=== PATIENT | female | born 1990 | race African-American/Black ===

== ENCOUNTER 2017-10-22 15:22 | Outpatient (CLI) | payer OTHER ==
--- NOTE | 2017-10-23 08:18 | Magnetic Resonance Report ---
MRI BRAIN WITHOUT AND WITH CONTRAST: 10/22/17 15:34:00 CLINICAL: Benign intracranial hypertension. TECHNIQUE: Axial diffusion, T1, FLAIR, gradient echo T2*, and coronal and axial T2 and sagittal T1 plus coronal and axial postcontrast T1 sequences on a 1.5 Jany magnet. 12.0 cc of Multihance was injected intravenously for the contrast portion of the exam. Consent was obtained prior to the administration of contrast. FINDINGS: Normal ventricles and sulci. No restricted diffusion. No mass or enhancing lesion. No hemorrhage, edema or extra-axial collection. Normal pituitary and optic chiasm. The brainstem and cerebellum are normal. Intact vascular flow voids. The orbits, sinuses and soft tissues are normal. Normal calvarium and skull base. IMPRESSION: Normal study.
== END 2017-10-22 15:23 | disposition home or self-care (01) ==
LOC: MRI 15:22
PROVIDERS: ATTEND Psychiatry & Neurology Neurology
DX: G93.2 Benign intracranial hypertension (principal)
CPT/HCPCS: 70553; A9577

== ENCOUNTER 2017-11-04 12:19 | Day surgery (SDC) | payer OTHER ==
[2017-11-04 13:44] LABS: Basophils % (Auto) 0.5 % (0.0-1.8); Eosinophils # (Auto) 0.1 K/mm3 (0.0-0.4); Eosinophils % (Auto) 1.7 % (0.0-4.3); Hematocrit 41.9 % (30.3-42.9); Hemoglobin 14.2 gm/dl (10.1-14.3); Lymphocytes # (Auto) 1.8 K/mm3 (1.2-5.4); Lymphocytes % (Auto) 33.8 % (13.4-35.0); Mean Corpuscular HGB Conc 34 % (30-34); Mean Corpuscular Hemoglobin 31 pg (28-32); Mean Corpuscular Volume 92 fl (79-97); Monocytes # (Auto) 0.4 K/mm3 (0.0-0.8); Monocytes % (Auto) 7.2 % (0.0-7.3); Platelet Count 199 K/mm3 (140-440); Red Blood Count 4.58 M/mm3 (3.65-5.03); Red Cell Distribution Width 12.3 % (13.2-15.2)
[2017-11-04 13:57] LABS: INR 0.9 (0.87-1.13)
[2017-11-04 13:58] LABS: Partial Thromboplastin Time 32.6 Sec. (24.2-36.6)
[2017-11-04 15:11] LABS: Glucose,CSF 52 mg/dL
--- NOTE | 2017-11-04 15:22 | Short Stay Summary ---
Short Stay Documentation Date of service: 11/04/17 - History Principal diagnosis: headache, intracranial hypertension H&P: obtained from office - Allergies and Medications Current Medications: Allergies No Known Allergies Allergy (Unverified 10/22/17 15:22) Home Medications Medication Instructions Recorded Confirmed Last Taken Type Cholecalciferol (Vitamin D3) 1 cap PO QWEEK 11/04/17 11/04/17 10/28/17 History [Vitamin D3] Glucosamine HCl [Vegetarian 750 mg PO DAILY 11/04/17 11/04/17 11/03/17 History Glucosamine] Omeprazole 20 mg PO DAILY 11/04/17 11/04/17 11/03/17 History Riboflavin (Vitamin B2) [Vitamin 25 mg PO QDAY 11/04/17 11/04/17 11/03/17 History B-2] - Physical exam General appearance: no acute distress - Brief post op/procedure progress note Date of procedure: 11/04/17 Pre-op diagnosis: headache Post-op diagnosis: same Procedure: flouro guided lumbar puncture Anesthesia: local Findings: none Surgeon: RAFAELA BOWIE Estimated blood loss: none Pathology: list (4 tubes) Specimen disposition: to lab Condition: stable - Disposition Condition at discharge: Good Disposition: DC-01 TO HOME OR SELFCARE Short Stay Discharge Plan Follow up with: SAHARA WHEELER MD [Primary Care Provider] - 7 Days
--- NOTE | 2017-11-04 15:26 | Fluoroscopy Report ---
FLUOROSCOPY LUMBAR PUNCTURE History: Benign intracranial hypertension, headaches. Description of procedure: Informed consent was obtained. Please note the patient refused a test prior to this procedure. Sterile technique was utilized. 1% lidocaine for skin anesthesia. Using fluoroscopy guidance, lumbar puncture was performed at the L2-3 level. One fluoroscopic image was captured. There was spontaneous return of blood-tinged CSF which cleared quickly. The opening pressure was within normal limits measuring 15 cm water. Approximately 12 cc of CSF fluid was collected in 4 tubes for laboratory analysis. No complications. Impression: Successful fluoroscopy guided lumbar puncture.
[2017-11-04 15:32] LABS: Appearance,CSF Clear; Red Blood Cell,CSF 58 /mm3 (0-0); White Blood Cell,CSF 11 /mm3 (1-10)
[2017-11-04 16:07] VITALS: BP 96/59
[2017-11-04 21:29] LABS: Total Cells Counted 42 /mm3
[2017-11-04 21:30] LABS: Basophils CSF 0 %
== END 2017-11-04 14:00 | disposition home or self-care (01) ==
LOC: CATHLABREC 12:19 → EDSTATUS 12:30 → CATHLABREC 14:00
PROVIDERS: ATTEND Psychiatry & Neurology Neurology
DX: G93.2 Benign intracranial hypertension (principal); Z79.01 Long term (current) use of anticoagulants; Z79.899 Other long term (current) drug therapy
CPT/HCPCS: 36415; 62270; 77003; 82947; 84160; 85025; 85610; 85730; 89051

== ENCOUNTER 2018-09-25 09:28 | Outpatient (CLI) | payer OTHER ==
[2018-09-25 09:59] VITALS: BP 96/59
[2018-09-25] MEDS ORDERED: CELESTONE SOLUSPAN IM SCH (10:00)
[2018-09-25 10:25] LABS: Bacteria,Urine 1+ /HPF (Negative); Bilirubin,Urine NEG (Negative); Blood,Urine SM (Negative); Color,Urine Yellow (Yellow); Mucus,Urine FEW /HPF; Protein,Urine <15 mg/dL mg/dL (Negative); Urobilinogen,Urine < 2.0 mg/dL (<2.0)
--- NOTE | 2018-09-25 13:21 | Ultrasound Report ---
ULTRASOUND OB LIMITED History: labor Technique: Transabdominal ultrasound with Doppler interrogation. Gestation: Single Position: Cephalic Amniotic Fluid: Normal KIRSTIN = 13.2 cm Placenta: Anterior Placental Grade: 0 Heart Rate: 149 BPM
== END 2018-09-25 11:44 | disposition home or self-care (01) ==
LOC: TRG 09:28
PROVIDERS: ATTEND Obstetrics & Gynecology
DX: O47.02 False labor before 37 completed weeks of gestation, second trimester (principal); Z3A.24 24 weeks gestation of pregnancy
CPT/HCPCS: 59025; 76815; 81001; 87086; 96372; J0702

== ENCOUNTER 2018-12-21 18:20 | Outpatient (CLI) | payer OTHER ==
[2018-12-21 19:58] VITALS: BP 100/61
== END 2018-12-21 22:30 | disposition home or self-care (01) ==
LOC: TRG 18:20
PROVIDERS: ATTEND Obstetrics & Gynecology
DX: O47.1 False labor at or after 37 completed weeks of gestation (principal); Z3A.38 38 weeks gestation of pregnancy
CPT/HCPCS: 59025

== ENCOUNTER 2019-01-06 12:55 | Inpatient (IN) | payer OTHER ==
[2019-01-06 14:21] LABS: Hematocrit 41.7 % (30.3-42.9); Hemoglobin 14.7 gm/dl (10.1-14.3); Mean Corpuscular HGB Conc 35 % (30-34); Mean Corpuscular Volume 97 fl (79-97); Platelet Count 198 K/mm3 (140-440); Red Blood Count 4.29 M/mm3 (3.65-5.03); Red Cell Distribution Width 13.4 % (13.2-15.2)
[2019-01-06] MEDS ORDERED: BRETHINE IVP PRN (14:30)
[2019-01-06] MEDS ORDERED: MINERAL OIL PO PRN (14:30)
[2019-01-06] MEDS ORDERED: XYLOCAINE 2% INFILTRATI NR (14:30)
[2019-01-06] MEDS ORDERED: BRETHINE SUB-Q PRN (14:30)
[2019-01-06] MEDS ORDERED: LACTATED RINGERS 1,000 ML IV SCH (15:00)
[2019-01-06] MEDS ORDERED: PITOCin/NS 20 UNIT/1000ML DRIP 20 UNITS/1,000 ML BAG IV SCH (15:00)
[2019-01-06] MEDS ORDERED: PITOCin/NS 30 UNIT/500ML 30 UNITS/500 ML BAG IV SCH (15:00)
[2019-01-06] MEDS ORDERED: CYTOTEC VG SCH (16:00)
--- NOTE | 2019-01-06 18:26 | History and Physical Report ---
History of Present Illness Date of examination: 01/06/19 Date of admission: 01/06/19 12:55 Chief complaint: Presents for Postdates Induction of labor History of present illness: Early entry to care, 1st trimester complicated by N&V (treated with Zofran); 2nd trimester complicated by a UTI (treated with Macrobid), and a abnormal 1hour GTT (followed by normal 3hour GTT); third trimester complicated by labor concerns (received Celestone series). Past History Past Medical History: no pertinent history Past Surgical History: no surgical history Family/Genetic History: none Social history: no significant social history, - Obstetrical History Expected Date of Delivery: 12/26/18 Actual Gestation: 41 Week(s) 4 Day(s) : 1 Medications and Allergies Allergies Allergy/AdvReac Type Severity Reaction Status Date / Time No Known Allergies Allergy Verified 01/06/19 13:29 Home Medications Medication Instructions Recorded Confirmed Last Taken Type Cholecalciferol (Vitamin D3) 1 cap PO QWEEK 11/04/17 11/04/17 10/28/17 History [Vitamin D3] Glucosamine HCl [Vegetarian 750 mg PO DAILY 11/04/17 11/04/17 11/03/17 History Glucosamine] Omeprazole 20 mg PO DAILY 11/04/17 11/04/17 11/03/17 History Riboflavin (Vitamin B2) [Vitamin 25 mg PO QDAY 11/04/17 11/04/17 11/03/17 History B-2] Active Meds: Active Medications Ephedrine Sulfate (Ephedrine Sulfate) 10 mg IV Q2M PRN PRN Reason: Hypotension Oxytocin/Sodium Chloride (Pitocin/Ns 20 Unit/1000ml Drip) 20 units in 1,000 mls @ 125 mls/hr IV DIRECT MAGNO Oxytocin/Sodium Chloride (Pitocin/Ns 30 Unit/500ml) 30 units in 500 mls @ 1 mls/hr IV TITR MAGNO; Protocol Lactated Ringer's (Lactated Ringers) 1,000 mls @ 125 mls/hr IV DIRECT MAGNO Last Admin: 01/06/19 16:15 Dose: 125 mls/hr Documented by: Lidocaine (Xylocaine 2%) 20 ml INFILTRATI ONCE NR Stop: 01/07/19 14:29 Mineral Oil (Mineral Oil) 30 ml PO QHS PRN PRN Reason: Constipation Misoprostol (Cytotec) 25 mcg VG Q4H MAGNO Last Admin: 01/06/19 16:15 Dose: 25 mcg Documented by: Terbutaline Sulfate (Brethine) 0.25 mg SUB-Q ONCE PRN PRN Reason: Hyperstimulation/Hypertonicity Terbutaline Sulfate (Brethine) 0.25 mg IVP ONCE PRN PRN Reason: Hyperstimulation/Hypertonicity Review of Systems All systems: negative - Vital Signs Vital signs: Vital Signs Temp Pulse Resp BP 96 F L 82 20 106/58 01/06/19 13:29 01/06/19 13:29 01/06/19 13:01/06/19 13:29 Temp Pulse Resp BP Pulse Ox 96 F L 82 20 106/58 01/06/19 13:01/06/19 13:30 01/06/19 13:01/06/19 13:30 - Physical Exam Breasts: Positive: normal Cardiovascular: Regular rate Lungs: Positive: Clear to auscultation, Normal air movement Abdomen: Positive: normal appearance, soft, normal bowel sounds Genitourinary (Female): Positive: normal external genitalia, normal perenium Vagina: Positive: normal moisture Uterus: Positive: enlarged - Obstetrical FHR: category 1 Cervical Dilatation: 1 Cervical Effacement Percentage: 30 station: -4 Results Result Diagrams: 01/06/19 14:00 Abnormal lab results 01/06/19 Range/Units 14:00 Hgb 14.7 H (10.1-14.3) gm/dl MCH 34 H (28-32) pg MCHC 35 H (30-34) % All other labs normal. Assessment and Plan A: IUP @41 4/7 Weeks Category I Tracing GBS Positive P: Admit to L&D per Routine Orders Cytotec 25mcg placed per vagina GBS prophylaxis
[2019-01-06] MEDS ORDERED: ZOFRAN IV PRN (18:30)
[2019-01-06] MEDS ORDERED: NARCAN 0.4 MG/1 ML IV PRN (18:30)
[2019-01-06] MEDS ORDERED: AMPICILLIN/NS 2 GM/100 ML 2 GM/100 ML BAG IV ONE (18:30)
[2019-01-06] MEDS ORDERED: CERVIDIL VG ONE (18:30)
[2019-01-06] MEDS: AMPICILLIN/NS 1 GM/50 ML 1 GM/50 ML BAG IV SCH (23:39)
[2019-01-07] MEDS: LACTATED RINGERS 1,000 ML IV SCH ×3 (01:41→06:06)
[2019-01-07] MEDS: SUBLIMAZE IV PRN ×2 (02:04→04:26)
[2019-01-07] MEDS: AMPICILLIN/NS 1 GM/50 ML 1 GM/50 ML BAG IV SCH ×2 (04:22→12:33)
[2019-01-07] MEDS ORDERED: NARCAN 2 MG/2 ML IV PRN (05:40)
--- NOTE | 2019-01-07 05:40 | Anesthesia Day of Surgery ---
Anesthesia Day of Surgery - Day of Surgery Patient Examined: Yes Patient H&P Reviewed: Yes Patient is NPO: No
--- NOTE | 2019-01-07 05:40 | Anesthesia Consultation ---
Anesthesia Consult and Med Hx Date of service: 01/07/19 - Airway Anesthetic Teeth Evaluation: Good ROM Head & Neck: Adequate Mental/Hyoid Distance: Adequate Mallampati Class: Class II Intubation Access Assessment: Probably Good - Pulmonary Exam CTA: Yes - Cardiac Exam Cardiac Exam: RRR - Pre-Operative Health Status ASA Pre-Surgery Classification: ASA2 Proposed Anesthetic Plan: Epidural - Pulmonary Hx Asthma: No COPD: No Hx Pneumonia: No - Cardiovascular System Hx Hypertension: No - Central Nervous System Hx Seizures: No Hx Psychiatric Problems: No - Endocrine Hx Renal Disease: No Hx End Stage Renal Disease: No Hx Hypothyroidism: No Hx Hyperthyroidism: No - Hematic Hx Anemia: No Hx Sickle Cell Disease: No - Other Systems Hx Alcohol Use: No Hx Cancer: No
[2019-01-07] MEDS: fentaNYL-BUPIV 2 MCG/ML-0.125% 200 MCG/100 ML BAG EPIDURAL SCH ×2 (06:02→12:48)
[2019-01-07] MEDS ORDERED: MARCAINE 0.25% INFILTRATI ONE ×2 (07:24→13:00)
--- NOTE | 2019-01-07 08:36 | Event Note ---
Date: 01/07/19 Assumed care of patient at 08:00. SVE 8/95/-1. Patient comfortable after epidural. Resting in right lateral position. Category 1 heart rate t racing.
--- NOTE | 2019-01-07 11:05 | Event Note ---
Date: 01/07/19 Patient is completely dilated. Allowing patient to labor down. Reassuring heart rate tracing.
--- NOTE | 2019-01-07 16:27 | Procedure Note ---
OB Delivery Note - Delivery Date of Delivery: 01/07/19 Surgeon: RAFAELA BOJORQUEZ Estimated blood loss: 300cc - Vaginal Delivery presentation: vertex Delivery position: OA Intrapartum events: meconium, prolonged 2nd stage>2.5hr, mult.variable deceleratio Delivery induction: none Delivery augmentation: rupture of membranes, pitocin Delivery monitor: external FHT, external uterine Route of delivery: vacuum extraction (2 pulls, no pop-offs) Indicators for instrumentation: maternal exhaustion Delivery placenta: spontaneous Delivery cord: nuchal cord, 3 umbilical vessels Episiotomy: midline Delivery laceration: 3rd degree Delivery repair: vicryl Anesthesia: epidural Delivery comments: delivered OA with the aid of a vacuum, 2 pulls, no pop-offs, nuchal cord x 1 easily reduced, and infant placed on Mom's chest for [id number] bonding and delayed cord clamping, cut by Dad - Infant A at 1 minute: 8 at 5 minutes: 9 Gender: Male (3518gms)
[2019-01-07] MEDS ORDERED: ZOFRAN IV PRN (16:29)
[2019-01-07] MEDS ORDERED: PHENERGAN PR PRN (16:29)
[2019-01-07] MEDS ORDERED: DULCOLAX PR PRN (16:29)
[2019-01-07] MEDS ORDERED: BENADRYL PO PRN (16:29)
[2019-01-07] MEDS ORDERED: LANSINOH TP PRN (16:29)
[2019-01-07] MEDS ORDERED: MILK OF MAGNESIA PO PRN (16:29)
[2019-01-07] MEDS ORDERED: PHENERGAN PO PRN (16:29)
[2019-01-07] MEDS ORDERED: TYLENOL PO PRN (16:29)
[2019-01-07] MEDS ORDERED: SODIUM CHLORIDE FLUSH SYRINGE 10 ML IV NR (17:00)
[2019-01-07] MEDS ORDERED: PITOCin/NS 20 UNIT/1000ML DRIP 20 UNITS/1,000 ML BAG IV SCH (17:00)
[2019-01-07] MEDS: IBUPROFEN PO SCH (18:25)
[2019-01-07] MEDS: TUCKS PAD TP PRN (18:26)
[2019-01-07] MEDS: DERMOPLAST TP PRN (22:25)
[2019-01-07] MEDS: COLACE PO SCH (22:25)
[2019-01-07] MEDS: FEOSOL PO SCH (22:25)
[2019-01-08] MEDS: IBUPROFEN PO SCH ×5 (00:24→22:52)
[2019-01-08] MEDS: NORCO 5/325 PO PRN ×2 (02:22→16:45)
[2019-01-08] MEDS ORDERED: LACTATED RINGERS 1,000 ML IV ONE (03:24)
[2019-01-08 05:41] LABS: Hemoglobin 9.2 gm/dl (10.1-14.3)
--- NOTE | 2019-01-08 09:23 | Progress Note ---
Assessment and Plan - Patient Problems (1) Status post vacuum-assisted vaginal delivery Current Visit: Yes Status: Acute Plan to address problem: PPD 1 - stable Continue routine orders Perineal care reviewed Anticipate discharge in 24 hours (2) Anemia due to blood loss, acute Current Visit: Yes Status: Acute Plan to address problem: Currently asymptomatic Continue iron therapy (ferrous sulfate 325mg PO BID) Subjective - Subjective Date of service: 01/08/19 Principal diagnosis: PPD #1; s/p VAVD Interval history: see H&P, Event Notes and OB Delivery Procedure Note Patient reports: appetite normal, voiding normally, pain well controlled, ambulating normally, no dizzy ambulation : doing well, other (breast and bottle feeding) Objective - Vital Signs Latest vital signs: Vital Signs Temp Pulse Resp BP BP Pulse Ox 01/08/19 07:34 98.1 F 19 83/52 01/08/19 04:34 98.2 F 84 20 90/56 99 01/08/19 02:22 18 01/07/19 23:49 98.0 F 88 20 95/50 98 01/07/19 18:15 97.7 F 81 18 100/48 97 01/07/19 17:19 96 H 106/51 01/07/19 16:19 85 115/59 01/07/19 15:49 98 H 133/62 01/07/19 15:17 102 H 128/61 01/07/19 14:16 91 H 132/79 01/07/19 13:16 100 H 118/70 01/07/19 12:15 98 H 129/77 01/07/19 11:17 78 132/81 01/07/19 10:15 93 H 108/67 Intake and Output 01/07/19 01/08/19 01/08/19 23:59 07:59 15:59 Intake Total 480 Output Total 700 Balance -220 Intake: Oral 480 Output: Urine 700 Void 700 Other: Total, Intake Amount 480 Total, Output Amount 400 # Voids Void 1 Estimated Blood Loss 300 - Exam Cardiovascular: Present: Regular rate Lungs: Present: Clear to auscultation Abdomen: Present: normal appearance, soft Vulva: both: laceration/episiotomy (well approximated) Uterus: Present: normal, firm, fundal height below umbilicus Extremities: Present: normal Comments: small lochia - Labs Labs: Abnormal lab results 01/08/19 Range/Units 05:11 Hgb 9.2 L D (10.1-14.3) gm/dl Hct 27.0 L D (30.3-42.9) %
[2019-01-08] MEDS: FEOSOL PO SCH ×2 (10:04→21:52)
[2019-01-08] MEDS: PRENATAL VITAMIN PO SCH (10:04)
[2019-01-08] MEDS: COLACE PO SCH ×2 (10:05→21:52)
[2019-01-08] MEDS ORDERED: M-M-R II VACCINE SUB-Q ONE (16:29)
[2019-01-08] MEDS ORDERED: BOOSTRIX IM ONE (16:29)
[2019-01-08] MEDS: TUCKS PAD TP PRN (21:51)
[2019-01-08] MEDS: DERMOPLAST TP PRN (21:52)
[2019-01-09] MEDS: IBUPROFEN PO SCH (05:33)
[2019-01-09 08:18] LABS: Hematocrit 28.3 % (30.3-42.9); Hemoglobin 9.8 gm/dl (10.1-14.3)
[2019-01-09 08:32] VITALS: BP 88/52
[2019-01-09] MEDS: COLACE PO SCH (10:17)
[2019-01-09] MEDS: PRENATAL VITAMIN PO SCH (10:17)
[2019-01-09] MEDS: FEOSOL PO SCH (10:17)
--- NOTE | 2019-01-09 14:11 | Progress Note ---
Assessment and Plan A: day 2 S/P vacuum assisted vaginal delivery. Anemia secondary to and blood loss. Heart murmur. P: Consulted with Dr. Oconnell re: this patient's heart murmur and lowish BPs (stable H&H). Dr. Oconnell states it is OK to discharge patient home today and have her follow up at [facility] this week for BP check and cardiology referral as an outpatient. Will discharge patient home today. discharge instructions and warning signs discussed with patient. Advised patient to rest at home and to avoid intercourse, lifting, heavy housework, and driving. Advised pt. re: care of perineal stitches and need to take an OTC stool softener (such as Colace) regularly. Advised patient to continue taking her vitamins and iron supplements at home. Advised patient to follow up at [facility] office in 3 days for BP check and for referral to cardiology (outpatient). Advised patient she must call the office Friday to obtain the appointment. The following Rx written for patient: Tylenol #3, #15 (fifteen), 1 po every 8 hours prn pain, 0 RF. Patient voiced understanding of all instructions. Subjective - Subjective Date of service: 01/09/19 Principal diagnosis: PPD #2; s/p VAVD Interval history: /postop day 2 S/P vacuum assisted vaginal delivery. Doing well. Pt. desires discharge today. Patient reports a small amount of lochia and denies clots. Voiding without difficulty. Ambulating well. Tolerating a regular diet without nausea or vomiting. Patient denies headache, visual disturbance, chest pain, cough, shortness of breath, dizziness, leg pain, abdominal pain, or heavy bleeding. She has anemia which is being treated with oral iron; H&H are stable. Patient reports: appetite normal, voiding normally, pain well controlled, fl atus, ambulating normally, no dizzy ambulation, no nauseated : doing well Objective - Vital Signs Latest vital signs: Vital Signs Temp Pulse Resp BP BP Pulse Ox 01/09/19 07:21 97.5 F L 79 18 88/52 01/09/19 00:13 97.6 F 90 18 85/52 97 01/08/19 19:17 97.6 F 92 H 16 89/48 95 01/08/19 16:48 98.2 F 98 H 19 92/57 97 Intake and Output 01/08/19 01/09/19 01/09/19 23:59 07:59 15:59 Intake Total 1000 480 Balance 1000 480 Intake: Oral 1000 480 Other: Total, Intake Amount 1000 480 # Voids Void 2 - Exam Cardiovascular: Present: Regular rate, Normal S1, Normal S2, Other (murmur heard) Lungs: Present: Clear to auscultation Abdomen: Present: normal appearance, soft, normal bowel sounds. Absent: dist ention, tenderness, guarding, rigidity Uterus: Present: normal, firm, fundal height below umbilicus. Absent: bogginess, tenderness Extremities: Present: normal, edema (mild edema of ankles and feet bilaterally). Absent: tenderness - Labs Labs: Abnormal lab results 01/09/19 Range/Units 07:58 Hgb 9.8 L (10.1-14.3) gm/dl Hct 28.3 L (30.3-42.9) %
--- NOTE | 2019-01-09 14:15 | Discharge Summary ---
Providers - Providers Date of Admission: 01/06/19 12:55 Date of discharge: 01/09/19 Attending physician: LEXIE SAHNI MD Primary care physician: LEXIE SAHNI MD Hospitalization Reason for admission: induction of labor Delivery: vacuum extraction Episiotomy: midline Laceration: 3rd degree Other procedures: none complications: none Discharge diagnosis: IUP at term delivered baby: male Pertinent studies: Labs Hospital course: Normal hospital course. Condition at discharge: Good Disposition: DC-01 TO HOME OR SELFCARE - Discharge Diagnoses (1) Term delivered Status: Acute (2) Anemia due to blood loss, acute Status: Acute Plan - Provider Discharge Summary Activity: routine, no sex for 6 weeks, no heavy lifting 4 weeks, no strenuous exercise Diet: routine Instructions: routine Additional instructions: Continue taking your vitamins and iron supplements at home. Rest at home. Go to [facility] in 3 days for BP check and outpatient cardiology referral. Call your doctor immediately for: * Fever > 100.5 * Heavy vaginal bleeding ( >1 pad per hour) * Severe persistent headache * Shortness of breath * Reddened, hot, painful area to leg or breast * Drainage or odor from incision. * Keep incision clean and dry at all times and follow doctor's instructions regarding bathing/showering - Follow up plan Follow up: LEXIE SAHNI MD [Primary Care Provider] - 3 Days
== END 2019-01-09 16:15 | disposition home or self-care (01) | DRG 768 ==
LOC: LD 12:55 → OB 01-07 17:50
PROVIDERS: ADMIT Obstetrics & Gynecology; ATTEND Obstetrics & Gynecology
PROC: 10D07Z6 Extraction of Products of Conception, Vacuum, Via Natural or Artificial Opening (ICD-10-PCS; principal; 2019-01-07)
PROC: 0DQR0ZZ Repair Anal Sphincter, Open Approach (ICD-10-PCS; 2019-01-07)
PROC: 0W8NXZZ Division of Female Perineum, External Approach (ICD-10-PCS; 2019-01-07)
PROC: 3E0R3BZ Introduction of Anesthetic Agent into Spinal Canal, Percutaneous Approach (ICD-10-PCS; 2019-01-07)
PROC: 00HU33Z Insertion of Infusion Device into Spinal Canal, Percutaneous Approach (ICD-10-PCS; 2019-01-07)
PROC: 3E0234Z Introduction of Serum, Toxoid and Vaccine into Muscle, Percutaneous Approach (ICD-10-PCS; 2019-01-08)
DX: O99.824 Streptococcus B carrier state complicating childbirth (principal); Z37.0 Single live birth; D62 Acute posthemorrhagic anemia; O70.20 Third degree perineal laceration during delivery, unspecified; Z3A.41 41 weeks gestation of pregnancy; Z23 Encounter for immunization; O77.0 Labor and delivery complicated by meconium in amniotic fluid; O69.81X0 Labor and delivery complicated by cord around neck, without compression, not applicable or unspecified; O76 Abnormality in fetal heart rate and rhythm complicating labor and delivery; O63.1 Prolonged second stage (of labor); O90.81 Anemia of the puerperium; R01.1 Cardiac murmur, unspecified; O90.89 Other complications of the puerperium, not elsewhere classified
CPT/HCPCS: 36415; 59200; 85014; 85018; 85027; 86592; 86850; 86900; 86901; G0378; A6250; J0290; J2405; J2590; J3010; J7120

== ENCOUNTER 2021-09-02 15:51 | Outpatient (CLI) | payer OTHER ==
[2021-09-02 16:10] VITALS: BP 122/58
== END 2021-09-02 16:35 | disposition home or self-care (01) ==
LOC: TRG 15:51 → APU 15:53 → TRG 16:35
PROVIDERS: ATTEND Obstetrics & Gynecology
DX: O26.893 Other specified pregnancy related conditions, third trimester (principal); R10.9 Unspecified abdominal pain; Z3A.30 30 weeks gestation of pregnancy
CPT/HCPCS: 59025

== ENCOUNTER 2021-10-26 10:52 | Outpatient (CLI) | payer OTHER ==
[2021-10-26 13:19] VITALS: BP 114/58
--- NOTE | 2021-10-26 13:45 | Ultrasound Report ---
Limited OB Ultrasound Biophysical profile HISTORY: well being. TECHNIQUE: Grayscale and color imaging performed. COMPARISON: None FINDINGS: Single viable intrauterine gestation with cephalic presentation, KIRSTIN of 13 cm, posterior/fundal place nta, and heart rate of 144 bpm. Overall EGA by ultrasound matches clinical age of 38 weeks and 1 day with estimated delivery date of 11/08/2021. Estimated weight is 3325 g. On biophysical profile, the fetus received a score of 2 out of 2 for breathing, movement, posture/ton e, and KIRSTIN. Total score was 8 out of 8. IMPRESSION: 1. Single viable intrauterine gestation as above. 2. Normal BPP. Signer Name: Breezy Carcamo MD Signed: 10/26/2021 1:40 PM Workstation Name: [id number]
== END 2021-10-26 10:55 | disposition home or self-care (01) ==
LOC: TRG 10:52 → APU 10:53 → TRG 10:55
PROVIDERS: ATTEND Obstetrics & Gynecology
DX: Z34.83 Encounter for supervision of other normal pregnancy, third trimester (principal); Z3A.38 38 weeks gestation of pregnancy
CPT/HCPCS: 76816; 76819

== ENCOUNTER 2021-10-29 09:38 | Outpatient (CLI) | payer OTHER ==
[2021-10-29 11:42] VITALS: BP 108/53
--- NOTE | 2021-10-29 12:29 | Ultrasound Report ---
ULTRASOUND OBSTETRIC LIMITED ULTRASOUND BIOPHYSICAL PROFILE INDICATION / CLINICAL INFORMATION: well-being. Clinical Gestational Age (GA) in weeks, days: 38, 4 TECHNIQUE: Transabdominal. COMPARISON: 10/26/2021 FINDINGS: BREATHING MOVEMENT = 2 GROSS BODY MOVEMENT = 2 TONE = 2 QUALITATIVE AMNIOTIC FLUID VOLUME = 2 TOTAL BIOPHYSICAL SCORE = 8/8 HEART RATE (beats per minute): 142 AMNIOTIC FLUID INDEX (cm) = 17.1 (normal = 7-24 cm) PRESENTATION: Cephalic. ADDITIONAL FINDINGS: None. IMPRESSION: 1. Biophysical Score = 8/8 2. Amniotic fluid index is 17.1 cm. Signer Name: Mayito Rogers MD Signed: 10/29/2021 12:23 PM Workstation Name: [id number]
== END 2021-10-29 12:27 | disposition home or self-care (01) ==
LOC: TRG 09:38 → APU 09:39 → TRG 12:27
PROVIDERS: ATTEND Obstetrics & Gynecology
DX: Z34.93 Encounter for supervision of normal pregnancy, unspecified, third trimester (principal); Z3A.49 Greater than 42 weeks gestation of pregnancy
CPT/HCPCS: 59025; 76815; 76819